=== PATIENT | female | born 1960 | race American Indian/Alaskan Native ===

== ENCOUNTER 2017-01-08 14:56 | Inpatient (IN) | payer BC ==
[2017-01-08] MEDS ORDERED: CATAPRES ONE (16:01)
[2017-01-08] MEDS ORDERED: CATAPRES PO ONE (16:07)
[2017-01-08 16:29] LABS: Basophils % (Auto) 0.3 % (0.0-1.8); Eosinophils % (Auto) 0.9 % (0.0-4.3); Hematocrit 41.6 % (30.3-42.9); Hemoglobin 13.7 gm/dl (10.1-14.3); Mean Corpuscular HGB Conc 33 % (30-34); Mean Corpuscular Hemoglobin 30 pg (28-32); Mean Corpuscular Volume 90 fl (79-97); Platelet Count 229 K/mm3 (140-440); Red Blood Count 4.63 M/mm3 (3.65-5.03); Red Cell Distribution Width 13.8 % (13.2-15.2); White Blood Count 7.3 K/mm3 (4.5-11.0)
--- NOTE | 2017-01-08 16:38 | Cat Scan Report ---
CRANIAL CT SCAN: Neuro deficits. Serial contiguous axial images were obtained through the cranium. Intravenous contrast material was not administered. The ventricles are normal in size and appearance. There is no mass effect or midline shift. No areas of abnormally increased or decreased attenuation are seen. No mass lesion is seen. The mastoid air cells and visualized portions of the sinuses are normal. IMPRESSION: Cranial CT scan within normal limits.
[2017-01-08 16:40] LABS: INR 0.97 (0.87-1.13)
[2017-01-08 16:41] LABS: Partial Thromboplastin Time 24.8 Sec. (24.2-36.6)
[2017-01-08] MEDS ORDERED: NORVASC PO ONE (17:22)
--- NOTE | 2017-01-08 17:28 | Emergency Department Report ---
ED General Adult HPI - General Chief complaint: Neuro Symptoms/Deficit Stated complaint: HYPERTENSION Time Seen by Provider: 01/08/17 17:05 Source: patient, RN notes reviewed Mode of arrival: Ambulatory Limitations: No Limitations - History of Present Illness Initial comments: 56-year-old female presents to the emergency department complaining of elevated blood pressure. Patient states that about one month ago she was started on blood pressure medication by her primary doctor. She had been doing well until approximately noon today. Patient states she began feeling lightheaded and having intermittent numbness across her forehead. She checked her blood pressure at work and was told her systolic blood pressure was over 200. Patient checked her blood pressure began approximately one hour later, and it remained elevated. Patient is denying chest pain or difficulty breathing. Patient was given 0.2 mg of oral clonidine at triage. There are no other complaints. -: Gradual, This morning Time: 12:00 Location: head Radiation: non-radiation Severity scale (0 -10): 0 Consistency: intermittent Improves with: none Worsens with: none Treatments Prior to Arrival: none - Related Data Home Medications Medication Instructions Recorded Confirmed Last Taken Metformin HCl [Metformin HCl ER] 1,000 mg PO BID 01/08/17 01/08/17 01/08/17 amLODIPine [Norvasc] 5 mg PO DAILY 01/08/17 01/08/17 Unknown glyBURIDE [Glyburide] 5 mg PO DAILY 01/08/17 01/08/17 Unknown Allergies Allergy/AdvReac Type Severity Reaction Status Date / Time No Known Allergies Allergy Unverified 01/08/17 15:45 ED Review of Systems ROS: Stated complaint: HYPERTENSION Other details as noted in HPI Comment: All other systems reviewed and negative Constitutional: other (fatigue) Neurological: numbness ED Past Medical Hx - Past Medical History Previous Medical History?: Yes Hx Hypertension: Yes Hx Diabetes: Yes - Surgical History Past Surgical History?: Yes Additional Surgical History: Hysterectomy - Family History Family history: no significant - Social History Smoking Status: Never Smoker Substance Use Type: None - Medications Home Medications: Home Medications Medication Instructions Recorded Confirmed Last Taken Type Metformin HCl [Metformin HCl ER] 1,000 mg PO BID 01/08/17 01/08/17 01/08/17 History amLODIPine [Norvasc] 5 mg PO DAILY 01/08/17 01/08/17 Unknown History glyBURIDE [Glyburide] 5 mg PO DAILY 01/08/17 01/08/17 Unknown History ED Physical Exam - General Limitations: No Limitations General appearance: alert, in no apparent distress - Head Head exam: Present: atraumatic, normocephalic - Eye Eye exam: Present: normal appearance, PERRL, EOMI - ENT ENT exam: Present: normal exam, normal orophraynx - Neck Neck exam: Present: normal inspection, full ROM. Absent: tenderness - Respiratory Respiratory exam: Present: normal lung sounds bilaterally. Absent: respiratory distress - Cardiovascular Cardiovascular Exam: Present: normal rhythm, tachycardia, normal heart sounds - GI/Abdominal GI/Abdominal exam: Present: soft, normal bowel sounds. Absent: distended, tenderness - Extremities Exam Extremities exam: Present: normal inspection, full ROM. Absent: tenderness - Back Exam Back exam: Present: normal inspection, full ROM. Absent: tenderness - Neurological Exam Neurological exam: Present: alert, oriented X3. Absent: motor sensory deficit - Skin Skin exam: Present: warm, dry, intact ED Course Vital Signs 01/08/17 01/08/17 01/08/17 15:48 16:10 17:32 Temperature 99.5 F Pulse Rate 101 H 100 H 107 H Respiratory 16 Rate Blood Pressure 192/109 192/109 183/83 Blood Pressure [Left] O2 Sat by Pulse Oximetry 01/08/17 01/08/17 01/08/17 18:04 18:28 19:01 Temperature Pulse Rate 59 L 102 H Respiratory 16 Rate Blood Pressure 184/106 Blood Pressure 185/101 187/95 [Left] O2 Sat by Pulse 96 Oximetry 01/08/17 19:38 Temperature Pulse Rate 118 H Respiratory 16 Rate Blood Pressure Blood Pressure 147/71 [Left] O2 Sat by Pulse 95 Oximetry - Reevaluation(s) Reevaluation #1: 01/08/17 19:36 Blood pressure has improved with oral Norvasc and IV hydralazine. Patient heart rate continues to be tachycardic. Adding TSH. Reevaluation #2: 01/08/17 20:40 TSH is within normal limits. Patient's heart rate remains elevated. Her blood pressure is improved but appears to be trending higher. Patient is to be admitted by the hospitalist for observation. ED Medical Decision Making - Lab Data Result diagrams: 01/08/17 16:10 01/08/17 16:10 - EKG Data -: EKG Interpreted by Me EKG shows normal: sinus rhythm, axis, intervals, QRS complexes, ST-T waves Rate: normal - EKG Data When compared to previous EKG there are: previous EKG unavailable Interpretation: normal EKG - Radiology Data Radiology results: report reviewed Head CT shows no acute intracranial abnormality. - Differential Diagnosis hypertension, ICH Critical care attestation.: If time is entered above; I have spent that time in minutes in the direct care of this critically ill patient, excluding procedure time. ED Disposition Clinical Impression: Tachycardia with hypertension Hypertension Qualifiers: Hypertension type: essential hypertension Qualified Code(s): I10 - Essential ( primary) hypertension Disposition: OP ADMITTED IP TO THIS HOSP Is pt being admited?: Yes Condition: Stable Instructions: Hypertension (ED) Referrals: PRIMARY CARE, [Primary Care Provider] - 3-5 Days Time of Disposition: 20:42
[2017-01-08 18:00] LABS: Anion Gap 16 mmol/L; Blood Urea Nitrogen 8 mg/dL (7-17); Calcium 8.6 mg/dL (8.4-10.2); Carbon Dioxide 26 mmol/L (22-30); Chloride 96.5 mmol/L (98-107); Glucose 193 mg/dL (65-100); Potassium 3.8 mmol/L (3.6-5.0); Sodium 135 mmol/L (137-145)
--- NOTE | 2017-01-08 18:46 | Admit Criteria Form ---
Admission Criteria Documentation: HYPERTENSION Clinical Indications for Admission to Inpatient Care ( Place "X" for any and all applicable criteria): Admission is indicated for ANY ONE of the following(1)(2)(3)(4): [ ]I. Hypertensive emergency, with evidence of acute and progressing target organ disease as indicated by ANY ONE of the following: [ ]a) Hypertensive encephalopathy (eg, confusion, altered mental status) [ ]b) Cerebral infarction [ ]c) Intracranial hemorrhage [ ]d) Myocardial ischemia or infarction [ ]e) Pulmonary edema [ ]f) Aortic dissection [ ]g) Seizure [ ]h) Acute renal insufficiency [ ]i) Papilledema [ ]j) Microangiopathic hemolytic anemia [ ]II. Adrenergic crisis (eg, severe hypertension due to pheochromocytoma crisis, cocaine or amphetamine intoxication, or clonidine withdrawal) [X]III. Severe hypertension (SBP greater than 180 mmHg or DBP greater than 110 mmHg or greater than the 95th percentile for age, gender, and height in pediatric patients) that cannot be controlled (eg, to SBP less than 160 mmHg and DBP less than 100 mmHg in adults) by treatment with oral medication in emergency department or observation care Extended stay beyond goal length of stay may be needed for(11)(12)(13): [ ]a) Persistent hypertensive encephalopathy [ ]b) Continuation of pulmonary edema [ ]c) Recurring or persistent severe hypertension [ ]d) Target organ damage (eg, angina, stroke, aortic dissection) [ ]e) Associated renal insufficiency The original [employer] content created by [employer] has been revised. The portions of the content which have been revised are identified through the use of italic text or in bold, and [facility] has neither reviewed nor approved the modified material. All other unmodified content is copyright [facility]. Please see references footnoted in the original [facility] edition 2016 Admission Criteria Met: Yes
[2017-01-08] MEDS ORDERED: APRESOLINE IV ONE (18:52)
[2017-01-08] MEDS ORDERED: ZOFRAN IV ONE (20:43)
--- NOTE | 2017-01-08 21:15 | History and Physical Report ---
History of Present Illness Chief complaint: My blood pressure is high History of present illness: 56 YO Female with HTN, DM, Metabolic Syndrome, Obesity presents to ED for evaluation. Pt states that she has been feeling lightheaded for several hours with worsening symptoms over the past several minutes which prompter her to seek care. Pt states that she had her blood pressure checked while at work and was found to have a systolic blood pressure above 200. checked her blood pressure again approximately one hour later, and it remained elevated. Patient denies fever, chills, CP, Palpitations, NVD, syncope, vision changes, recent ill contacts, trauma, or severe headache. Pt seen and evaluated in ED and experienced nausea and vomiting. Past History Past Medical History: diabetes, hypertension Past Surgical History: hysterectomy Social history: single Family history: diabetes, hypertension Medications and Allergies Allergies Allergy/AdvReac Type Severity Reaction Status Date / Time No Known Allergies Allergy Unverified 01/08/17 15:45 Home Medications Medication Instructions Recorded Confirmed Last Taken Type Metformin HCl [Metformin HCl ER] 1,000 mg PO BID 01/08/17 01/08/17 01/08/17 History amLODIPine [Norvasc] 5 mg PO DAILY 01/08/17 01/08/17 Unknown History glyBURIDE [Glyburide] 5 mg PO DAILY 01/08/17 01/08/17 Unknown History Review of Systems All systems: negative Constitutional: other (high blood presure) Gastrointestinal: nausea, vomiting Exam - Constitutional Vitals: Temp Pulse Resp BP Pulse Ox 99.5 F 118 H 16 147/71 95 01/08/17 15:48 01/08/17 19:38 01/08/17 19:38 01/08/17 19:38 01/08/17 19:38 General appearance: Present: obese - EENT Eyes: Present: PERRL ENT: hearing intact, clear oral mucosa - Neck Neck: Present: supple, normal ROM - Respiratory Respiratory effort: normal Respiratory: bilateral: CTA - Cardiovascular Heart Sounds: Present: S1 & S2. Absent: rub, click - Extremities Extremities: pulses symmetrical, No edema Peripheral Pulses: within normal limits - Abdominal General gastrointestinal: Present: soft, non-tender, non-distended, normal bowel sounds Female genitourinary: Present: normal - Integumentary Integumentary: Present: clear, warm, dry - Musculoskeletal Musculoskeletal: gait normal, strength equal bilaterally - Psychiatric Psychiatric: appropriate mood/affect, intact judgment & insight - Neurologic Neurologic: CNII-XII intact, moves all extremities Results - Labs CBC & Chem 7: 01/08/17 16:10 01/08/17 16:10 Labs: Abnormal lab results 01/08/17 01/08/17 01/08/17 Range/Units 16:10 16:10 16:11 Lymph % (Auto) 13.1 L (13.4-35.0) % Lymph # 1.0 L (1.2-5.4) K/mm3 Seg Neutrophils % 79.5 H (40.0-70.0) % Sodium 135 L (137-145) mmol/L Chloride 96.5 L (98-107) mmol/L Creatinine 0.4 L (0.7-1.2) mg/dL Glucose 193 H (65-100) mg/dL POC Glucose 201 H (70-105) Assessment and Plan - Patient Problems (1) Accelerated hypertension Current Visit: Yes Status: Acute Plan to address problem: Monitor BP q shift, hydralazine prn, amlodipine (2) Diabetes Current Visit: Yes Status: Acute Qualifiers: Diabetes mellitus type: D Diabetes mellitus complication status: D Diabetes mellitus complication detail: D Diabetic retinopathy severity: D Proliferative retinopathy type: P Diabetes mellitus macular edema: D Diabetes mellitus joint terminal attack controller insulin use: D Laterality: L Chronic kidney disease stage: C Plan to address problem: ADA diet, insulin, accu check, HGB A1c (3) Metabolic syndrome Current Visit: Yes Status: Acute Plan to address problem: Pt counseled regarding balanced diet, increased physical activity (4) Gastroparesis Current Visit: Yes Status: Acute Plan to address problem: reglan, supportive care, bowel rest (5) DVT prophylaxis Current Visit: Yes Status: Acute
[2017-01-08] MEDS ORDERED: MILK OF MAGNESIA PO PRN (21:17)
[2017-01-08] MEDS ORDERED: ZOFRAN IV PRN (21:17)
[2017-01-08] MEDS ORDERED: DULCOLAX PR PRN (21:17)
[2017-01-08] MEDS ORDERED: D50W (25GM) IV PRN (21:20)
[2017-01-08] MEDS ORDERED: REGLAN IV ONE (21:22)
[2017-01-08] MEDS: NOVOLOG SUB-Q SCH (21:46)
[2017-01-08] MEDS: NACL 0.45% 1000 ML 1,000 ML IV SCH (23:55)
[2017-01-08] MEDS: TYLENOL PO PRN (23:56)
[2017-01-09] MEDS: NOVOLOG SUB-Q SCH ×3 (09:23→18:21)
[2017-01-09] MEDS: NORVASC PO SCH (09:47)
[2017-01-09] MEDS ORDERED: FLUARIX QUAD 2016-2017(36 MOS+) IM ONE (12:00)
[2017-01-09] MEDS ORDERED: PNEUMOVAX 23 IM ONE (12:00)
[2017-01-09] MEDS: NACL 0.45% 1000 ML 1,000 ML IV SCH (15:24)
--- NOTE | 2017-01-09 17:15 | Progress Note ---
Assessment and Plan Assessment and plan: 1. Accelerated hypertension Received clonidine 1 in ER and restarted on her home antihypertensives Now BP controlled on amlodipine Monitor and adjust as needed 2. Nausea/vomiting Secondary to significantly elevated BP versus diabetic gastroparesis Controlled BP Symptomatic treatment, IV fluids, antiemetics If persistent, gastric emptying study may be obtained 3. Diabetes On oral antidiabetics, metformin and glyburide Hemoglobin A1c 9.6 Extensively counseled and agrees to start long acting insulin Initiate Levemir along with SSI to assess insulin requirements 4. Metabolic syndrome 5. Morbid obesity with likely FRANDY/OHS Counseled regarding importance of losing weight and lifestyle changes Outpatient pulmonary follow-up for sleep study 6. SIRS Tachycardic with low-grade fever WBC within normal limits No symptoms/signs of infection (except for nausea/vomiting which could be due to gastroenteritis also, but less likely as there is no abdominal pain, diarrhea ) Obtain chest x-ray and check UA 7. DVT prophylaxis Start Lovenox History Interval history: felling better, still nauseated, but not throwing up Hospitalist Physical - Constitutional Vitals: Temp Pulse Resp BP Pulse Ox 99.8 F H 102 H 18 128/71 97 01/09/17 12:44 01/09/17 07:00 01/09/17 07:00 01/09/17 07:00 01/09/17 10:00 General appearance: Present: mild distress, obese (morbidly) - EENT Eyes: Present: PERRL, EOM intact. Absent: scleral icterus, conjunctival injection - Neck Neck: Present: supple, normal ROM. Absent: masses or JVD - Respiratory Respiratory effort: normal Respiratory: bilateral: diminished (due to body habitus), negative: rhonchi, wheezing - Cardiovascular Rhythm: other (tachycardic) Heart Sounds: Present: S1 & S2. Absent: systolic murmur - Extremities Extremities: no ischemia - Abdominal General gastrointestinal: soft, non-tender, non-distended, normal bowel sounds - Integumentary Integumentary: Present: warm, dry. Absent: jaundice, rash - Psychiatric Psychiatric: cooperative - Neurologic Neurologic: CNII-XII intact, no focal deficits Results - Labs CBC & Chem 7: 01/08/17 16:10 01/08/17 16:10 Labs: Laboratory Last Values WBC 7.3 K/mm3 (4.5-11.0) 01/08/17 16:10 RBC 4.63 M/mm3 (3.65-5.03) 01/08/17 16:10 Hgb 13.7 gm/dl (10.1-14.3) 01/08/17 16:10 Hct 41.6 % (30.3-42.9) 01/08/17 16:10 MCV 90 fl (79-97) 01/08/17 16:10 MCH 30 pg (28-32) 01/08/17 16:10 MCHC 33 % (30-34) 01/08/17 16:10 RDW 13.8 % (13.2-15.2) 01/08/17 16:10 Plt Count 229 K/mm3 (140-440) 01/08/17 16:10 Lymph % (Auto) 13.1 % (13.4-35.0) L 01/08/17 16:10 [place] % (Auto) 6.2 % (0.0-7.3) 01/08/17 16:10 Eos % (Auto) 0.9 % (0.0-4.3) 01/08/17 16:10 Baso % (Auto) 0.3 % (0.0-1.8) 01/08/17 16:10 Lymph # 1.0 K/mm3 (1.2-5.4) L 01/08/17 16:10 [place] # 0.5 K/mm3 (0.0-0.8) 01/08/17 16:10 Eos # 0.1 K/mm3 (0.0-0.4) 01/08/17 16:10 Baso # 0.0 K/mm3 (0.0-0.1) 01/08/17 16:10 Seg Neutrophils % 79.5 % (40.0-70.0) H 01/08/17 16:10 Seg Neutrophils # 5.8 K/mm3 (1.8-7.7) 01/08/17 16:10 PT 12.8 Sec. (12.2-14.9) 01/08/17 16:10 INR 0.97 (0.87-1.13) 01/08/17 16:10 APTT 24.8 Sec. (24.2-36.6) 01/08/17 16:10 Thrombin Time 16.2 Sec. (15.1-19.6) 01/08/17 16:10 Sodium 135 mmol/L (137-145) L 01/08/17 16:10 Potassium 3.8 mmol/L (3.6-5.0) 01/08/17 16:10 Chloride 96.5 mmol/L (98-107) L 01/08/17 16:10 Carbon Dioxide 26 mmol/L (22-30) 01/08/17 16:10 Anion Gap 16 mmol/L 01/08/17 16:10 BUN 8 mg/dL (7-17) 01/08/17 16:10 Creatinine 0.4 mg/dL (0.7-1.2) L 01/08/17 16:10 Estimated GFR > 60 ml/min 01/08/17 16:10 BUN/Creatinine Ratio 20.00 % 01/08/17 16:10 Glucose 193 mg/dL (65-100) H 01/08/17 16:10 POC Glucose 176 (70-105) H 01/09/17 16:12 Hemoglobin A1c 9.6 % (4-6) H 01/08/17 16:10 Calcium 8.6 mg/dL (8.4-10.2) 01/08/17 16:10 Troponin T < 0.010 ng/mL (0.00-0.029) 01/08/17 16:10 TSH 0.989 mlU/mL (0.270-4.200) 01/08/17 19:42 - Imaging and Cardiology Chest x-ray: pending CT Scan - head: report reviewed (normal)
[2017-01-09] MEDS: LOVENOX SUB-Q SCH (22:00)
[2017-01-09] MEDS: TYLENOL PO PRN (23:31)
[2017-01-10] MEDS: LEVEMIR SUB-Q SCH ×2 (01:03→22:56)
[2017-01-10] MEDS: NOVOLOG SUB-Q SCH ×5 (01:03→22:55)
[2017-01-10] MEDS: NACL 0.45% 1000 ML 1,000 ML IV SCH ×2 (04:37→17:31)
[2017-01-10 05:45] LABS: Basophils % (Auto) 0.3 % (0.0-1.8); Eosinophils % (Auto) 0.9 % (0.0-4.3); Hematocrit 37.3 % (30.3-42.9); Hemoglobin 12.3 gm/dl (10.1-14.3); Mean Corpuscular HGB Conc 33 % (30-34); Mean Corpuscular Hemoglobin 30 pg (28-32); Mean Corpuscular Volume 90 fl (79-97); Platelet Count 188 K/mm3 (140-440); Red Blood Count 4.15 M/mm3 (3.65-5.03); Red Cell Distribution Width 13.7 % (13.2-15.2); White Blood Count 5.6 K/mm3 (4.5-11.0)
[2017-01-10 05:58] LABS: Anion Gap 14 mmol/L; Blood Urea Nitrogen 6 mg/dL (7-17); Calcium 7.9 mg/dL (8.4-10.2); Carbon Dioxide 25 mmol/L (22-30); Chloride 102.8 mmol/L (98-107); Glucose 146 mg/dL (65-100); Sodium 139 mmol/L (137-145)
--- NOTE | 2017-01-10 09:53 | XRay Report ---
CHEST TWO VIEWS: 01/09/17 CLINICAL: Systemic inflammatory response syndrome. COMPARISON: None FINDINGS: Normal heart and pulmonary vasculature. The lungs are normally expanded and clear.The bones and soft tissues are unremarkable. IMPRESSION: Normal chest.
[2017-01-10] MEDS: NORVASC PO SCH (10:13)
[2017-01-10 11:07] LABS: Bacteria,Urine 1+ /HPF (Negative); Bilirubin,Urine NEG (Negative); Blood,Urine NEG (Negative); Ketones,Urine 20 mg/dL (Negative); Leukocyte Esterase,Urine LG (Negative); Mucus,Urine FEW /HPF; Nitrite,Urine NEG (Negative); Protein,Urine <15 mg/dL mg/dL (Negative); Renal Epithelial Cells,Urine 1 /LPF
[2017-01-10] MEDS ORDERED: K-DUR PO ONE (18:14)
--- NOTE | 2017-01-10 18:25 | Progress Note ---
Assessment and Plan Assessment and plan: 1. Accelerated hypertension Received clonidine 1 in ER and restarted on her home antihypertensives Now on amlodipine Monitor and adjust as needed 2. Nausea/vomiting Secondary to significantly elevated BP versus diabetic gastroparesis BP controlled now Symptomatic treatment, IV fluids, antiemetics If persistent, gastric emptying study may be obtained 3. Diabetes At home onn oral antidiabetics, metformin and glyburide Hemoglobin A1c 9.6 Extensively counseled and agreed to start long acting insulin On Levemir along with SSI to assess insulin requirements (not given last night, reason unknown) 4. Metabolic syndrome 5. Morbid obesity with likely FRANDY/OHS Counseled regarding importance of losing weight and lifestyle changes Outpatient pulmonary follow-up for sleep study 6. Sepsis/UTI UA suggestive of UTI Obtain urine culture and start Rocephin 7. DVT prophylaxis Lovenox History Interval history: felling better Hospitalist Physical - Constitutional Vitals: Temp Pulse Resp BP Pulse Ox 99.0 F 88 20 169/81 95 01/10/17 16:37 01/10/17 16:37 01/10/17 16:37 01/10/17 16:37 01/10/17 16:37 General appearance: Present: no acute distress, obese (morbidly) - EENT Eyes: Present: PERRL, EOM intact. Absent: scleral icterus, conjunctival injection - Neck Neck: Present: supple. Absent: enlarged thyroid, masses or JVD - Respiratory Respiratory effort: normal Respiratory: bilateral: CTA, negative: rales, rhonchi - Cardiovascular Rhythm: regular Heart Sounds: Present: S1 & S2. Absent: systolic murmur - Extremities Extremities: no ischemia - Abdominal General gastrointestinal: soft, non-tender, non-distended, normal bowel sounds - Integumentary Integumentary: Present: warm, dry. Absent: jaundice, rash - Neurologic Neurologic: CNII-XII intact, no focal deficits Results - Labs CBC & Chem 7: 01/10/17 05:06 01/11/17 07:20 Labs: Laboratory Last Values WBC 5.6 K/mm3 (4.5-11.0) 01/10/17 05:06 RBC 4.15 M/mm3 (3.65-5.03) 01/10/17 05:06 Hgb 12.3 gm/dl (10.1-14.3) 01/10/17 05:06 Hct 37.3 % (30.3-42.9) 01/10/17 05:06 MCV 90 fl (79-97) 01/10/17 05:06 MCH 30 pg (28-32) 01/10/17 05:06 MCHC 33 % (30-34) 01/10/17 05:06 RDW 13.7 % (13.2-15.2) 01/10/17 05:06 Plt Count 188 K/mm3 (140-440) 01/10/17 05:06 Lymph % (Auto) 26.7 % (13.4-35.0) 01/10/17 05:06 [place] % (Auto) 11.1 % (0.0-7.3) H 01/10/17 05:06 Eos % (Auto) 0.9 % (0.0-4.3) 01/10/17 05:06 Baso % (Auto) 0.3 % (0.0-1.8) 01/10/17 05:06 Lymph # 1.5 K/mm3 (1.2-5.4) 01/10/17 05:06 [place] # 0.6 K/mm3 (0.0-0.8) 01/10/17 05:06 Eos # 0.1 K/mm3 (0.0-0.4) 01/10/17 05:06 Baso # 0.0 K/mm3 (0.0-0.1) 01/10/17 05:06 Seg Neutrophils % 61.0 % (40.0-70.0) 01/10/17 05:06 Seg Neutrophils # 3.4 K/mm3 (1.8-7.7) 01/10/17 05:06 PT 12.8 Sec. (12.2-14.9) 01/08/17 16:10 INR 0.97 (0.87-1.13) 01/08/17 16:10 APTT 24.8 Sec. (24.2-36.6) 01/08/17 16:10 Thrombin Time 16.2 Sec. (15.1-19.6) 01/08/17 16:10 Sodium 139 mmol/L (137-145) 01/10/17 05:06 Potassium 3.0 mmol/L (3.6-5.0) L D 01/10/17 05:06 Chloride 102.8 mmol/L (98-107) 01/10/17 05:06 Carbon Dioxide 25 mmol/L (22-30) 01/10/17 05:06 Anion Gap 14 mmol/L 01/10/17 05:06 BUN 6 mg/dL (7-17) L 01/10/17 05:06 Creatinine 0.5 mg/dL (0.7-1.2) L 01/10/17 05:06 Estimated GFR > 60 ml/min 01/10/17 05:06 BUN/Creatinine Ratio 12.00 % 01/10/17 05:06 Glucose 146 mg/dL (65-100) H 01/10/17 05:06 POC Glucose 182 (70-105) H 01/10/17 16:07 Hemoglobin A1c 9.6 % (4-6) H 01/08/17 16:10 Calcium 7.9 mg/dL (8.4-10.2) L 01/10/17 05:06 Troponin T < 0.010 ng/mL (0.00-0.029) 01/08/17 16:10 TSH 0.989 mlU/mL (0.270-4.200) 01/08/17 19:42 Urine Color Yellow (Yellow) 01/10/17 Unknown Urine Turbidity Clear (Clear) 01/10/17 Unknown Urine pH 5.0 (5.0-7.0) 01/10/17 Unknown Ur Specific [place] 1.013 (1.003-1.030) 01/10/17 Unknown Urine Protein <15 mg/dl mg/dL (Negative) 01/10/17 Unknown Urine Glucose (UA) Neg mg/dL (Negative) 01/10/17 Unknown Urine Ketones 20 mg/dL (Negative) 01/10/17 Unknown Urine Blood Neg (Negative) 01/10/17 Unknown Urine Nitrite Neg (Negative) 01/10/17 Unknown Urine Bilirubin Neg (Negative) 01/10/17 Unknown Urine Urobilinogen 4.0 mg/dL (<2.0) 01/10/17 Unknown Ur Leukocyte Esterase Lg (Negative) 01/10/17 Unknown Urine WBC (Auto) 72.0 /HPF (0.0-6.0) H 01/10/17 Unknown Urine RBC (Auto) 5.0 /HPF (0.0-6.0) 01/10/17 Unknown U Epithel Cells (Auto) 2.0 /HPF (0-13.0) 01/10/17 Unknown Urine Bacteria (Auto) 1+ /HPF (Negative) 01/10/17 Unknown Ur Renal Epithelial Cell 1 /LPF 01/10/17 Unknown Urine Mucus Few /HPF 01/10/17 Unknown
[2017-01-10] MEDS: TYLENOL PO PRN (20:06)
[2017-01-10] MEDS: ROCEPHIN/NS 1 GM/50 ML 1 GM/50 ML BAG IV SCH (20:07)
[2017-01-10] MEDS: LOVENOX SUB-Q SCH (22:55)
[2017-01-11] MEDS: NOVOLOG SUB-Q SCH ×4 (08:45→22:52)
[2017-01-11 09:14] LABS: Blood Urea Nitrogen 7 mg/dL (7-17); Carbon Dioxide 25 mmol/L (22-30)
[2017-01-11 09:15] LABS: Anion Gap 17 mmol/L; Calcium 8.2 mg/dL (8.4-10.2); Chloride 102.4 mmol/L (98-107); Glucose 167 mg/dL (65-100); Potassium 3.2 mmol/L (3.6-5.0); Sodium 141 mmol/L (137-145)
[2017-01-11] MEDS: NORVASC PO SCH (09:58)
[2017-01-11] MEDS: ROCEPHIN/NS 1 GM/50 ML 1 GM/50 ML BAG IV SCH (09:58)
[2017-01-11] MEDS ORDERED: K-DUR PO ONE (12:00)
[2017-01-11] MEDS: ZESTRIL PO SCH (13:30)
[2017-01-11] MEDS: NACL 0.45% 1000 ML 1,000 ML IV SCH (14:22)
--- NOTE | 2017-01-11 17:42 | Progress Note ---
Assessment and Plan Assessment and plan: 1. Accelerated hypertension Received clonidine 1 in ER and restarted on her home antihypertensives Now on amlodipine BP better, but not at goal, add Lisinopril 2. Nausea/vomiting Secondary to significantly elevated BP versus diabetic gastroparesis Resolved now 3. Uncontrolled diabetes At home on oral antidiabetics, metformin and glyburide Hemoglobin A1c 9.6 Extensively counseled and agreed to start long acting insulin On Levemir along with SSI to assess insulin requirements; increase dose dose 4. Hypokalemia Replace and recheck in a.m. 5. Sepsis/UTI UA suggestive of UTI, culture obtained, results pending Continue Rocephin 6. Metabolic syndrome 7. Morbid obesity with likely FRANDY/OHS Counseled regarding importance of losing weight and lifestyle changes Outpatient pulmonary follow-up for sleep study 8. DVT prophylaxis Lovenox History Interval history: doing well, tolerating diet, BP and BS better controlled, but not at goal Hospitalist Physical - Constitutional Vitals: Temp Pulse Resp BP Pulse Ox 97.9 F 83 20 154/80 96 01/11/17 15:00 01/11/17 15:00 01/11/17 15:01/11/17 15:00 01/11/17 11:24 General appearance: Present: no acute distress, obese (morbidly) - EENT Eyes: Present: PERRL, EOM intact. Absent: scleral icterus, conjunctival injection - Neck Neck: Present: supple, normal ROM. Absent: masses or JVD - Respiratory Respiratory effort: normal Respiratory: bilateral: CTA, negative: rales, rhonchi - Cardiovascular Rhythm: regular Heart Sounds: Present: S1 & S2. Absent: systolic murmur - Extremities Extremities: no ischemia - Abdominal General gastrointestinal: soft, non-tender, non-distended, normal bowel sounds - Integumentary Integumentary: Present: warm, dry. Absent: jaundice, rash - Psychiatric Psychiatric: cooperative - Neurologic Neurologic: CNII-XII intact, no focal deficits Results - Labs CBC & Chem 7: 01/10/17 05:06 01/11/17 07:20 Labs: Laboratory Last Values WBC 5.6 K/mm3 (4.5-11.0) 01/10/17 05:06 RBC 4.15 M/mm3 (3.65-5.03) 01/10/17 05:06 Hgb 12.3 gm/dl (10.1-14.3) 01/10/17 05:06 Hct 37.3 % (30.3-42.9) 01/10/17 05:06 MCV 90 fl (79-97) 01/10/17 05:06 MCH 30 pg (28-32) 01/10/17 05:06 MCHC 33 % (30-34) 01/10/17 05:06 RDW 13.7 % (13.2-15.2) 01/10/17 05:06 Plt Count 188 K/mm3 (140-440) 01/10/17 05:06 Lymph % (Auto) 26.7 % (13.4-35.0) 01/10/17 05:06 [place] % (Auto) 11.1 % (0.0-7.3) H 01/10/17 05:06 Eos % (Auto) 0.9 % (0.0-4.3) 01/10/17 05:06 Baso % (Auto) 0.3 % (0.0-1.8) 01/10/17 05:06 Lymph # 1.5 K/mm3 (1.2-5.4) 01/10/17 05:06 [place] # 0.6 K/mm3 (0.0-0.8) 01/10/17 05:06 Eos # 0.1 K/mm3 (0.0-0.4) 01/10/17 05:06 Baso # 0.0 K/mm3 (0.0-0.1) 01/10/17 05:06 Seg Neutrophils % 61.0 % (40.0-70.0) 01/10/17 05:06 Seg Neutrophils # 3.4 K/mm3 (1.8-7.7) 01/10/17 05:06 PT 12.8 Sec. (12.2-14.9) 01/08/17 16:10 INR 0.97 (0.87-1.13) 01/08/17 16:10 APTT 24.8 Sec. (24.2-36.6) 01/08/17 16:10 Thrombin Time 16.2 Sec. (15.1-19.6) 01/08/17 16:10 Sodium 141 mmol/L (137-145) 01/11/17 07:20 Potassium 3.2 mmol/L (3.6-5.0) L 01/11/17 07:20 Chloride 102.4 mmol/L (98-107) 01/11/17 07:20 Carbon Dioxide 25 mmol/L (22-30) 01/11/17 07:20 Anion Gap 17 mmol/L 01/11/17 07:20 BUN 7 mg/dL (7-17) 01/11/17 07:20 Creatinine 0.4 mg/dL (0.7-1.2) L 01/11/17 07:20 Estimated GFR > 60 ml/min 01/11/17 07:20 BUN/Creatinine Ratio 17.50 % 01/11/17 07:20 Glucose 167 mg/dL (65-100) H 01/11/17 07:20 POC Glucose 205 (70-105) H 01/11/17 13:11 Hemoglobin A1c 9.6 % (4-6) H 01/08/17 16:10 Lactic Acid 1.00 mmol/L (0.7-2.0) 01/10/17 19:07 Calcium 8.2 mg/dL (8.4-10.2) L 01/11/17 07:20 Troponin T < 0.010 ng/mL (0.00-0.029) 01/08/17 16:10 TSH 0.989 mlU/mL (0.270-4.200) 01/08/17 19:42 Urine Color Yellow (Yellow) 01/10/17 Unknown Urine Turbidity Clear (Clear) 01/10/17 Unknown Urine pH 5.0 (5.0-7.0) 01/10/17 Unknown Ur Specific [place] 1.013 (1.003-1.030) 01/10/17 Unknown Urine Protein <15 mg/dl mg/dL (Negative) 01/10/17 Unknown Urine Glucose (UA) Neg mg/dL (Negative) 01/10/17 Unknown Urine Ketones 20 mg/dL (Negative) 01/10/17 Unknown Urine Blood Neg (Negative) 01/10/17 Unknown Urine Nitrite Neg (Negative) 01/10/17 Unknown Urine Bilirubin Neg (Negative) 01/10/17 Unknown Urine Urobilinogen 4.0 mg/dL (<2.0) 01/10/17 Unknown Ur Leukocyte Esterase Lg (Negative) 01/10/17 Unknown Urine WBC (Auto) 72.0 /HPF (0.0-6.0) H 01/10/17 Unknown Urine RBC (Auto) 5.0 /HPF (0.0-6.0) 01/10/17 Unknown U Epithel Cells (Auto) 2.0 /HPF (0-13.0) 01/10/17 Unknown Urine Bacteria (Auto) 1+ /HPF (Negative) 01/10/17 Unknown Ur Renal Epithelial Cell 1 /LPF 01/10/17 Unknown Urine Mucus Few /HPF 01/10/17 Unknown
[2017-01-11] MEDS ORDERED: LEVEMIR SUB-Q SCH (22:00)
[2017-01-11] MEDS: TYLENOL PO PRN (22:51)
[2017-01-11] MEDS: LOVENOX SUB-Q SCH (22:51)
[2017-01-12 05:56] LABS: Anion Gap 16 mmol/L; BUN/Creatinine Ratio 23.33; Blood Urea Nitrogen 7 mg/dL (7-17); Calcium 8.1 mg/dL (8.4-10.2); Carbon Dioxide 24 mmol/L (22-30); Chloride 104.8 mmol/L (98-107); Glucose 134 mg/dL (65-100); Potassium 3.3 mmol/L (3.6-5.0); Sodium 141 mmol/L (137-145)
[2017-01-12] MEDS: NACL 0.45% 1000 ML 1,000 ML IV SCH (07:05)
[2017-01-12] MEDS: NOVOLOG SUB-Q SCH ×2 (07:30→12:10)
[2017-01-12 08:20] VITALS: BP 138/80
--- NOTE | 2017-01-12 09:13 | Discharge Summary ---
Providers - Providers Date of Admission: 01/08/17 21:17 Date of discharge: 01/12/17 Attending physician: ALEKS CRUZ Primary care physician: JORGE ALBERTO CISNEROS Hospitalization Reason for admission: lightheadedness Condition: Stable Pertinent studies: Chest x-ray CT had Hospital course: Patient is a 56 years old morbidly obese -[place] female with hypertension, diabetes, metabolic syndrome who presented to the ER complaining of lightheadedness. Found to have hypertensive urgency with systolic blood pressure in 200s which is treated accordingly, then by mouth antihypertensives have been resumed; regimen needed adjustment (CHRISSY inhibitor added) and BP better controlled. Also found to have uncontrolled diabetes which could not be managed with by mouth antidiabetics, so discussion about need of insulin held and patient agreed; particularly long-acting insulin and dose increased; will need further adjustments by her PCP. Also due to her morbid obesity with likely FRANDY, will be referred to associate professor for sleep study. Discharge diagnosis: 1. Accelerated hypertension 2. Uncontrolled diabetes 3. Metabolic syndrome 4. Morbid obesity with likely FRANDY/OHS 5. Sepsis/UTI Disposition: DISCHARGED TO HOME OR SELFCARE Time spent for discharge: 35 minutes Core Measure Documentation - Palliative Care Palliative Care/ Comfort Measures: Not Applicable - Core Measures Any of the following diagnoses?: none Exam - Physical Exam Narrative exam: Patient seen and examined: - Constitutional Vitals: Temp Pulse Resp BP Pulse Ox 98.2 F 73 20 138/80 96 01/12/17 08:00 01/12/17 08:00 01/12/17 08:00 01/12/17 08:00 01/11/17 11:24 General appearance: Present: no acute distress, obese - EENT Eyes: Present: PERRL, EOM intact. Absent: scleral icterus, conjunctival injection - Neck Neck: Present: supple, normal ROM. Absent: masses or JVD - Respiratory Respiratory effort: normal Respiratory: bilateral: CTA, negative: rhonchi, wheezing - Cardiovascular Rhythm: regular Heart Sounds: Present: S1 & S2. Absent: systolic murmur - Extremities Extremities: no ischemia - Abdominal General gastrointestinal: Present: soft, non-tender, non-distended, normal bowel sounds - Musculoskeletal Musculoskeletal: strength equal bilaterally - Psychiatric Psychiatric: cooperative - Neurologic Neurologic: CNII-XII intact, no focal deficits Plan Activity: advance as tolerated Diet: low cholesterol, low salt, diabetic Follow up with: PRIMARY CARE, [Referring] - 3-5 Days KERRY FUNK MD [Staff Physician] - 7 Days (Sleep study) [facility] [Outside] - 7 Days Prescriptions: Insulin Detemir [Levemir] 12 units SUB-Q QHS 30 Days amLODIPine [Norvasc] 5 mg PO DAILY #30 tablet Lisinopril [Zestril TAB] 10 mg PO QDAY #30 tablet Metformin HCl [Metformin HCl ER] 1,000 mg PO BID #60 Syringe & Needle,Insulin,1 ml [Insulin Syringe/Needle 1 ML] 1 each MC DAILY #30 disp.syrin
[2017-01-12] MEDS: ROCEPHIN/NS 1 GM/50 ML 1 GM/50 ML BAG IV SCH (09:16)
[2017-01-12] MEDS: ZESTRIL PO SCH (09:16)
[2017-01-12] MEDS: NORVASC PO SCH (09:16)
== END 2017-01-12 13:30 | disposition home or self-care (01) | DRG 872 ==
LOC: ED 14:56 → 3A 21:17
PROVIDERS: ADMIT Internal Medicine; ATTEND Internal Medicine
DX: A41.9 Sepsis, unspecified organism (principal); N39.0 Urinary tract infection, site not specified; Z68.42 Body mass index [BMI] 45.0-49.9, adult; K31.84 Gastroparesis; I10 Essential (primary) hypertension; G43.A1 Cyclical vomiting, in migraine, intractable; E66.01 Morbid (severe) obesity due to excess calories; Z71.3 Dietary counseling and surveillance; Z90.710 Acquired absence of both cervix and uterus; Z83.3 Family history of diabetes mellitus; Z82.49 Family history of ischemic heart disease and other diseases of the circulatory system; E88.81 Metabolic syndrome and other insulin resistance; E11.43 Type 2 diabetes mellitus with diabetic autonomic (poly)neuropathy; E87.6 Hypokalemia; E11.65 Type 2 diabetes mellitus with hyperglycemia
CPT/HCPCS: 36415; 70450; 71020; 80048; 81001; 82140; 82962; 83036; 84443; 84484; 85025; 85610; 85670; 85730; 87086; 90686; 90732; 93005; 93010; 96374; 96375; J0360; J0696; J1650; J1815; J1818; J2405; J2765